=== PATIENT | male | born 1945 | race African-American/Black ===

== ENCOUNTER 2020-08-06 05:52 | Observation (INO) ==
[2020-08-04 13:59] LABS: Basophils # 0.1 10*3/uL (0.0-0.2); Basophils % 0.5 % (0.0-0.8); Eosinophils # 0.5 10*3/uL (0.0-0.87); Eosinophils % 5.5 % (0.00-10.9); Hematocrit 36.2 VOL% (42.0-52.0); Hemoglobin 11.7 GM/DL (14.0-18.0); Immature Granulocytes % 0.4 %; Immature Granulocytes Absolute 0.04 #; Lymphocytes # 1.6 10*3/uL (1.4-4.0); Lymphocytes % 17.4 % (21.2-54.2); Mean Corpuscular HGB Conc 32.3 GM/DL (32-36); Mean Corpuscular Volume 85.2 FL (87-102); Mean Platelet Volume 9.8 FL (9.6-12.0); Monocytes % 7.1 % (1.7-12.7); Neutrophils % 69.1 % (38.7-73.9); Platelet Count 324 T/CUMM (130-400); Red Blood Count 4.25 MC/CUMM (3.8-5.5); Red Cell Distribution Width 13.8 % (9.3-17.3); White Blood Count 9.4 T/CUMM (4-12)
[2020-08-04 14:21] LABS: Calcium 9.1 MG/DL (8.5-10.1); Osmolality,Calculated 273.7 MOS/KG (273-304); Potassium 3.9 MMOL/L (3.5-5.1)
[2020-08-06] MEDS ORDERED: cefTRIAXone 1,000 MG VIAL ONE (05:57)
[2020-08-06] MEDS ORDERED: cefTRIAXone 1,000 MG in SODIUM CHLORIDE 0.9% 100 ML IV ONE (06:30)
[2020-08-06] MEDS: LACTATED RINGERS 1,000 ML IV SCH ×2 (06:39→08:39)
[2020-08-06] MEDS ORDERED: fentaNYL 100 MCG/2 ML VIAL ONE (06:40)
[2020-08-06] MEDS ORDERED: MIDAZOLAM 2 MG/2 ML VIAL ONE (06:40)
[2020-08-06] MEDS ORDERED: LIDOCAINE 2% TOP JELLY 20 ML VIAL INTRAURETH ONE (07:23)
[2020-08-06] MEDS ORDERED: propofoL 200 MG/20 ML VIAL IV ONE ×2 (07:27→08:00)
[2020-08-06] MEDS ORDERED: ONDANSETRON 4 MG/2 ML VIAL ONE (07:27)
[2020-08-06] MEDS ORDERED: ROCURONIUM 50 MG/5 ML VIAL IV ONE (07:27)
[2020-08-06] MEDS ORDERED: ePHEDrine 50 MG/ML VIAL ONE (07:27)
[2020-08-06] MEDS ORDERED: SEVOFLURANE 1 UNIT/15 MINUTE INH ONE ×6 (07:27→08:04)
[2020-08-06] MEDS ORDERED: LIDOCAINE 2% 5 ML VIAL ONE (07:27)
[2020-08-06] MEDS ORDERED: PHENYLEPHRINE 1 MG/10 ML SYRINGE IV ONE (07:29)
[2020-08-06] MEDS ORDERED: HYDROmorphone 2 MG/1 ML VIAL IV PRN (08:27)
[2020-08-06] MEDS ORDERED: ONDANSETRON 4 MG/2 ML VIAL IV PRN (08:27)
[2020-08-06] MEDS ORDERED: PROMETHAZINE 25 MG/1 ML VIAL IM PRN (08:27)
[2020-08-06] MEDS ORDERED: ACETAMINOPHEN 325 MG TABLET PO PRN (08:27)
[2020-08-06] MEDS ORDERED: oxyCODONE/ACETAMINOPHEN 5-325 MG TABLET PO PRN (08:27)
[2020-08-06] MEDS ORDERED: SIMETHICONE CHEW 80 MG TABLET PO PRN (08:31)
[2020-08-06] MEDS ORDERED: tiZANidine 4 MG TABLET PO PRN (09:01)
[2020-08-06] MEDS ORDERED: ZALEPLON 5 MG CAPSULE PO PRN (09:01)
[2020-08-06 09:58] LABS: Basophils # 0.1 10*3/uL (0.0-0.2); Basophils % 0.5 % (0.0-0.8); Eosinophils # 0.5 10*3/uL (0.0-0.87); Eosinophils % 4.9 % (0.00-10.9); Hematocrit 36.1 VOL% (42.0-52.0); Hemoglobin 11.7 GM/DL (14.0-18.0); Immature Granulocytes % 0.5 %; Immature Granulocytes Absolute 0.05 #; Lymphocytes # 1.7 10*3/uL (1.4-4.0); Lymphocytes % 18.6 % (21.2-54.2); Mean Corpuscular HGB Conc 32.4 GM/DL (32-36); Mean Corpuscular Volume 85.1 FL (87-102); Mean Platelet Volume 9.1 FL (9.6-12.0); Monocytes % 7.8 % (1.7-12.7); Neutrophils % 67.7 % (38.7-73.9); Platelet Count 310 T/CUMM (130-400); Red Blood Count 4.24 MC/CUMM (3.8-5.5); Red Cell Distribution Width 13.7 % (9.3-17.3); White Blood Count 9.1 T/CUMM (4-12)
[2020-08-06] MEDS ORDERED: hydrALAZINE 10 MG TABLET PO STA ×2 (10:14→10:20)
[2020-08-06 10:25] LABS: Calcium 8.7 MG/DL (8.5-10.1); Osmolality,Calculated 273.8 MOS/KG (273-304); Potassium 3.6 MMOL/L (3.5-5.1)
[2020-08-06] MEDS ORDERED: hydrALAZINE 20 MG/1 ML VIAL IV PRN (13:47)
[2020-08-07 06:03] LABS: Basophils % 0.5 % (0.0-0.8); Eosinophils # 0.5 10*3/uL (0.0-0.87); Eosinophils % 6.4 % (0.00-10.9); Hematocrit 34.3 VOL% (42.0-52.0); Hemoglobin 11.4 GM/DL (14.0-18.0); Immature Granulocytes % 0.3 %; Immature Granulocytes Absolute 0.02 #; Lymphocytes # 1.7 10*3/uL (1.4-4.0); Lymphocytes % 22.4 % (21.2-54.2); Mean Corpuscular HGB Conc 33.2 GM/DL (32-36); Mean Corpuscular Volume 82.9 FL (87-102); Mean Platelet Volume 9.8 FL (9.6-12.0); Monocytes % 7.8 % (1.7-12.7); Neutrophils % 62.6 % (38.7-73.9); Platelet Count 317 T/CUMM (130-400); Red Blood Count 4.14 MC/CUMM (3.8-5.5); Red Cell Distribution Width 13.7 % (9.3-17.3); White Blood Count 7.4 T/CUMM (4-12)
[2020-08-07 06:20] LABS: Calcium 8.6 MG/DL (8.5-10.1); Osmolality,Calculated 272.8 MOS/KG (273-304); Potassium 3.4 MMOL/L (3.5-5.1)
[2020-08-07] MEDS ORDERED: cefTRIAXone 1,000 MG in SODIUM CHLORIDE 0.9% 100 ML IV SCH (07:30)
[2020-08-07 07:53] VITALS: BP 118/57
[2020-08-07] MEDS ORDERED: POTASSIUM CHLORIDE 20 MEQ TABLET PO ONE (08:21)
[2020-08-07] MEDS ORDERED: PANTOPRAZOLE 40 MG TABLET PO SCH (09:00)
[2020-08-07] MEDS ORDERED: POTASSIUM GLUCONATE 500 MG TABLET PO SCH (09:00)
[2020-08-07] MEDS ORDERED: hydroCHLOROthiazide 25 MG TABLET PO SCH (09:00)
[2020-08-07] MEDS ORDERED: lisinopriL 20 MG TABLET PO SCH (09:00)
[2020-08-07] MEDS ORDERED: DILTIAZEM CD 120 MG CAPSULE PO SCH (09:00)
[2020-08-07] MEDS ORDERED: ASPIRIN CHEW 81 MG TABLET PO SCH (09:00)
[2020-08-07] MEDS ORDERED: ATORVASTATIN 10 MG TABLET PO SCH (09:00)
[2020-08-07] MEDS ORDERED: TAMSULOSIN 0.4 MG CAPSULE PO SCH (09:00)
[2020-08-07] MEDS ORDERED: MAGNESIUM OXIDE 400 MG TABLET PO SCH (09:00)
== END 2020-08-07 11:21 | disposition home or self-care (01) ==
LOC: N.TELES 05:52 → N.OR 05:52 → N.SDSINP 05:54 → N.TELES 12:03
PROVIDERS: ADMIT Surgery; ATTEND Surgery